=== PATIENT | female | born 1990 ===

== ENCOUNTER 2020-01-08 00:42 | Inpatient (IN) | payer BC, OTHER ==
[~2020-01-08] VITALS: Ht 165.1 cm; Wt 115.9 kg
[~2020-01-08 00:42] MED LIST: CRUTCH2 USE; PROACE100 PO
[2020-01-08] MEDS ORDERED: PRENATAL TABLE1 EAC2 PO (06:03)
[2020-01-08 07:28] LABS: BASOPHILS ABSOLUTE AUTO 0.03 K/mm3 (0.00-0.23); BASOPHILS PERCENT AUTO 0 % (0-2); EOSINOPHILS ABSOLUTE AUTO 0.01 K/mm3 (0.00-0.68); EOSINOPHILS PERCENT AUTO 0 % (0-6); Hematocrit 38.9 % (33.0-51.0); Hemoglobin 13.7 g/dL (11.5-16.0); IMMATURE GRAN ABSOLUTE AUTO 0.07 K/mm3 (0.00-0.10); IMMATURE GRAN PERCENT AUTO 0 % (0-1); LYMPHOCYTES ABSOLUTE AUTO 0.69 K/mm3 (0.84-5.20); LYMPHOCYTES PERCENT AUTO 4 % (21-46); MONOCYTES ABSOLUTE AUTO 0.38 K/mm3 (0.16-1.47); MONOCYTES PERCENT AUTO 2 % (4-13); Mean Corpuscular HGB 31.1 pg (26.0-34.0); Mean Corpuscular HGB Conc 35.2 g/dL (31.5-36.5); Mean Corpuscular Volume 88 fL (80-100); Mean Platelet Volume 11.1 fL (9.1-12.4); NEUTROPHILS ABSOLUTE AUTO 14.58 K/mm3 (1.96-9.15); NEUTROPHILS PERCENT AUTO 93 % (41-73); Platelet Count 220 K/mm3 (150-400); RDW Coefficient Variation 12.3 % (11.7-14.2); RDW Standard Deviation 39.8 fL (35.1-46.3); White Blood Cell Count 15.76 K/mm3 (4.00-11.30)
--- NOTE | 2020-01-08 15:00 | NUR ---
REPORT TO DARINEL SANTIAGO RN.
[2020-01-09 06:17] LABS: BASOPHILS ABSOLUTE AUTO 0.05 K/mm3 (0.00-0.23); BASOPHILS PERCENT AUTO 0 % (0-2); EOSINOPHILS ABSOLUTE AUTO 0.13 K/mm3 (0.00-0.68); EOSINOPHILS PERCENT AUTO 1 % (0-6); Hematocrit 34.5 % (33.0-51.0); Hemoglobin 11.7 g/dL (11.5-16.0); IMMATURE GRAN ABSOLUTE AUTO 0.04 K/mm3 (0.00-0.10); IMMATURE GRAN PERCENT AUTO 0 % (0-1); LYMPHOCYTES ABSOLUTE AUTO 2.32 K/mm3 (0.84-5.20); LYMPHOCYTES PERCENT AUTO 20 % (21-46); MONOCYTES ABSOLUTE AUTO 0.83 K/mm3 (0.16-1.47); MONOCYTES PERCENT AUTO 7 % (4-13); Mean Corpuscular HGB 30.8 pg (26.0-34.0); Mean Corpuscular HGB Conc 33.9 g/dL (31.5-36.5); Mean Platelet Volume 10.4 fL (9.1-12.4); NEUTROPHILS PERCENT AUTO 71 % (41-73); Platelet Count 154 K/mm3 (150-400); RDW Coefficient Variation 12.7 % (11.7-14.2); RDW Standard Deviation 41.5 fL (35.1-46.3); White Blood Cell Count 11.57 K/mm3 (4.00-11.30)
[2020-01-09 06:35] LABS: Mean Corpuscular Volume 91 fL (80-100)
[2020-01-09] MEDS ORDERED: IBU800 MG PO (10:32)
--- NOTE | 2020-01-09 16:55 | NUR ---
RN ROUNDED TO HELP WITH . EXPERIENCED BRF MOM. INSTRUCT/DEMO CORRECT POSITIONING AND WIDENING LATCH. INSTRUCT ON BOOKLET AND BROCHURE OF WHAT TO EXPECT WITH BREASTFEED AND CHANGES IN NB DURING THE FIRST WEEK OF LIFE WELL AND STOMACH SIZE PROGRESSION. PT DENIES ANY FURTHER QUESTIONS OR CONCERNS.
--- NOTE | 2020-01-09 20:15 | NUR ---
PATIENT DISCHARGED TO HOME IN CAR
== END 2020-01-09 20:20 | disposition home or self-care (01) | DRG 807 ==
LOC: OBS 00:42 → BC 03:47 → OBS 05:58 → BC 06:00
PROVIDERS: Advanced Practice Midwife; ADMIT Registered Nurse Community Health
PROC: 10E0XZZ Delivery of Products of Conception, External Approach (ICD-10-PCS; principal; 2020-01-08)
PROC: 3E0R3BZ Introduction of Anesthetic Agent into Spinal Canal, Percutaneous Approach (ICD-10-PCS; 2020-01-08)
DX: O80 Encounter for full-term uncomplicated delivery (principal); Z37.0 Single live birth; Z3A.39 39 weeks gestation of pregnancy
CPT/HCPCS: 36415; 51702; 59025; 85025; 85460; 86850; 86900; 86901; J1885; J2001; J2270; J2274; J2550; J2590; J2791; J3010; J7120